=== PATIENT | male | born 1985 | race Caucasian/White ===

== ENCOUNTER 2020-06-02 09:01 | Day surgery (SDC) | payer MEDICAID, SELFPAY ==
[~2020-06-02] VITALS: Ht 175.3 cm; Wt 87.6 kg
[2020-06-02 09:51] LABS: BASO # 0.1 10^3/uL (0.0-0.2); BASO % 0.2 % (0.0-1.0); HEMATOCRIT 44.6 % (42.0-52.0); HEMOGLOBIN 15.4 g/dl (13.5-17.5); LYMPH % 4.8 % (24.0-44.0); MEAN CORPUSCULAR HEMOGLOBIN 30.3 pg (27.0-33.0); MEAN CORPUSCULAR HGB CONC 34.5 g/dl (32.0-36.5); MEAN CORPUSCULAR VOLUME 87.8 fl (80.0-96.0); MONO % 4.8 % (0.0-5.0); NEUTROPHILS # 19.6 10^3/uL (1.5-8.5); NEUTROPHILS % 89.6 % (36.0-66.0); PLATELET COUNT, AUTOMATED 183 10^3/uL (150-450); RED BLOOD COUNT 5.08 10^6/uL (4.30-6.10); WHITE BLOOD COUNT 21.9 10^3/uL (4.0-10.0)
[2020-06-02 10:01] LABS: INR 0.95; PARTIAL THROMBOPLASTIN TIME 28.6 SECONDS (24.2-38.5); PROTHROMBIN TIME 12.8 SECONDS (12.5-14.3)
[2020-06-02 10:18] LABS: ALBUMIN 4.2 GM/DL (3.2-5.2); ALT/SGPT 54 U/L (12-78); AMYLASE 38 U/L (25-115); BILIRUBIN,DIRECT 0.3 MG/DL (0.0-0.2); BILIRUBIN,TOTAL 1.2 MG/DL (0.2-1.0); BLOOD UREA NITROGEN 14 MG/DL (7-18); CALCIUM LEVEL 9.3 MG/DL (8.5-10.1); CARBON DIOXIDE LEVEL 26 MEQ/L (21-32); CHLORIDE LEVEL 102 MEQ/L (98-107); CREATININE FOR GFR 1.05 MG/DL (0.70-1.30); GLOMERULAR FILTRATION RATE > 60.0 (>60); GLUCOSE, FASTING 140 MG/DL (70-100); LIPASE 93 U/L (73-393); POTASSIUM SERUM 3.8 MEQ/L (3.5-5.1); SODIUM LEVEL 137 MEQ/L (136-145)
[2020-06-02] MEDS ORDERED: ISOVUE-370 76% 100ML VIAL As Ordered ONE (10:34)
[2020-06-02] MEDS ORDERED: ONDANSETRON 4MG/2ML VIAL IV ONE (11:00)
[2020-06-02] MEDS ORDERED: NS 1,000 ML IV SCH (11:00)
--- NOTE | 2020-06-02 11:05 | REPVR ---
PROCEDURE INFORMATION: Exam: CT Abdomen And Pelvis With Contrast Exam date and time: 06/02/2020 10:38 AM Age: 35 years old Clinical indication: Abdominal pain; Generalized; Additional info: Abd pain TECHNIQUE: Imaging protocol: Computed tomography of the abdomen and pelvis with intravenous contrast. Radiation optimization: All CT scans at this facility use at least one of these dose optimization techniques: automated exposure control; mA and/or kV adjustment per patient size (includes targeted exams where dose is matched to clinical indication); or iterative reconstruction. Contrast material: ISOVUE 370; Contrast volume: 100 ml; Contrast route: INTRAVENOUS (IV); COMPARISON: No relevant prior studies available. FINDINGS: Liver: Fatty liver is enlarged 184 mm. Gallbladder and bile ducts: Normal. No calcified stones. No ductal dilation. Pancreas: Normal. No ductal dilation. Spleen: There granulomata within an enlarged spleen measuring 130 mm. Adrenals: Normal. No mass. Kidneys and ureters: Normal. No hydronephrosis. Stomach and bowel: Scattered colonic diverticula are identified. Appendix: There is are calcifications within the appendix. There is mild inflammatory changes around an enlarged appendix measuring 10 mm. There is no evidence of perforation. Intraperitoneal space: Unremarkable. No free air. No significant fluid collection. Vasculature: Unremarkable. No abdominal aortic aneurysm. Lymph nodes: Unremarkable. No enlarged lymph nodes. Urinary bladder: Unremarkable as visualized. Reproductive: Unremarkable as visualized. Bones/joints: Unremarkable. No acute fracture. Soft tissues: Unremarkable. IMPRESSION: 1. Acute appendicitis with an appendiceal calcifications. No evidence of perforation. 2. Hepatosplenomegaly with fatty liver. Electronically signed by: Fercho Paez On 06/02/2020 11:05:31 AM
[2020-06-02] MEDS ORDERED: PIPERACILLIN/TAZOBACTAM SOD 4.5 GM in D5W MINI-BAG PLUS 50 ML IV ONE (11:15)
[2020-06-02] MEDS: MORPHINE 4 MG/ML 1ML VIAL/SYRINGE (J2270) IV PRN ×2 (11:21→12:14)
[2020-06-02] MEDS ORDERED: ALLE180T33 PO (11:58)
[2020-06-02] MEDS ORDERED: MORPHINE 4 MG/ML 1ML VIAL/SYRINGE (J2270) As Ordered ONE (13:23)
[2020-06-02] MEDS ORDERED: MORPHINE 4 MG/ML 1ML VIAL/SYRINGE (J2270) IV ONE (13:30)
[2020-06-02] MEDS: LR 1,000 ML IV SCH (14:47)
[2020-06-02] MEDS ORDERED: MORPHINE 2 MG/ML 1ML VIAL (J2270) As Ordered ONE ×4 (15:32→19:53)
[2020-06-02] MEDS: MORPHINE 2 MG/ML 1ML VIAL (J2270) IV PRN ×4 (15:33→20:15)
[2020-06-02] MEDS ORDERED: ZOSYN 3.375GM VIAL (J2543) As Ordered ONE (16:51)
[2020-06-02] MEDS ORDERED: ACETAMINOPHEN 325 MG TAB As Ordered ONE (17:13)
[2020-06-02] MEDS: PIPERACILLIN/TAZOBACTAM SOD 3.375 GM in D5W MINI-BAG PLUS 50 ML IV SCH (17:14)
[2020-06-02] MEDS ORDERED: ACETAMINOPHEN TAB 650MG DOSE (2X325MG) PO ONE (17:30)
[2020-06-02] MEDS ORDERED: MIDAZOLAM INJ 2MG/2ML VIAL (J2250 PER 1MG) As Ordered ONE (20:05)
[2020-06-02] MEDS ORDERED: dexameTHASONE 4 MG/ML 1ML VIAL (J1100 PER 1MG) As Ordered ONE (20:05)
[2020-06-02] MEDS ORDERED: LIDOCAINE 2% 100MG/5ML SDV (FOR ANES.) As Ordered ONE (20:05)
[2020-06-02] MEDS ORDERED: ROCURONIUM BROMIDE 50 MG/5 ML VIAL As Ordered ONE (20:05)
[2020-06-02] MEDS ORDERED: propofoL 200 MG/20 ML VIAL As Ordered ONE (20:05)
[2020-06-02] MEDS ORDERED: fentaNYL 100 MCG/2 ML INJECTION (J3010) As Ordered ONE ×2 (20:05→20:53)
[2020-06-02] MEDS ORDERED: ONDANSETRON 4MG/2ML VIAL As Ordered ONE (20:05)
[2020-06-02] MEDS ORDERED: BUPIVACAINE HCL 0.25% 30ML VIAL As Ordered ONE (20:06)
[2020-06-02] MEDS ORDERED: KETOROLAC 60MG 2ML VIAL As Ordered ONE (20:48)
[2020-06-02] MEDS ORDERED: SUGAMMADEX SODIUM 500 MG/5 ML VIAL (BRIDION) As Ordered ONE (20:48)
[2020-06-02] MEDS ORDERED: METOCLOPRAMIDE INJ 10MG/2ML VIAL (J2765 PER 1) As Ordered ONE (21:01)
[2020-06-02] MEDS ORDERED: ACETAMINOPHEN TAB 650MG DOSE (2X325MG) PO PRN (22:15)
[2020-06-02] MEDS ORDERED: PERCOCET 5MG/325MG TAB PO PRN (22:15)
[2020-06-02] MEDS ORDERED: fentaNYL 100 MCG/2 ML INJECTION (J3010) IV PRN (22:15)
[2020-06-02] MEDS ORDERED: METOCLOPRAMIDE INJ 10MG/2ML VIAL (J2765 PER 1) IV PRN (22:15)
[2020-06-02] MEDS ORDERED: LR 1,000 ML IV SCH (22:15)
[2020-06-02] MEDS ORDERED: NORCO, ANEXSIA 5/325MG TABLET (HYDROcodone/ACETAMINOPHEN) PO PRN (22:15)
[2020-06-02] MEDS ORDERED: ONDANSETRON 4MG/2ML VIAL IV PRN ×2 (22:15)
[2020-06-02] MEDS ORDERED: IBUPROFEN 600MG TAB PO PRN (22:15)
[2020-06-02] MEDS ORDERED: KETOROLAC 30 MG/ML 1ML VIAL IV PRN (22:15)
[2020-06-02 23:30] VITALS: BP 125/69
[2020-06-03] VITALS (7 sets, daily range): BP systolic 105–126; BP diastolic 65–80
[2020-06-03] MEDS: PIPERACILLIN/TAZOBACTAM SOD 3.375 GM in D5W MINI-BAG PLUS 50 ML IV SCH ×5 (00:34→23:25)
[2020-06-03] MEDS: LR 1,000 ML IV SCH ×2 (02:13→10:27)
--- NOTE | 2020-06-03 10:28 | RO ---
DATE OF OPERATION: 06/02/2020 PREOPERATIVE DIAGNOSIS: Acute appendicitis. POSTOPERATIVE DIAGNOSIS: Acute appendicitis with perforation. PROCEDURE: Laparoscopic appendectomy. SURGEON: Gary Syed M.D. HR ASSOCIATE: ANESTHESIA: General. INDICATIONS FOR PROCEDURE: Patient is a 35-year-old man who presented to the emergency department with a roughly one-day history of abdominal discomfort. This was initially fairly diffuse and associated with some nausea and vomiting. The pain became more predominant and was most pronounced across the lower abdomen and in the right lower quadrant. He presented to the emergency department for evaluation. He was found to have significant tenderness across the lower abdomen and his white count was elevated to approximately 22,000 with a left shift. A CT scan showed appendicoliths within an inflamed appendix and I was consulted. He is now for a laparoscopic appendectomy. He has had a fever reported since admission and he has fairly marked tenderness diffusely across the lower abdomen raising the likelihood that this represents a perforated appendicitis. DESCRIPTION OF OPERATIVE PROCEDURE: The patient was brought to the operating room and placed on the table in a supine position. He was placed under general endotracheal anesthesia. The patients abdomen was prepped and draped in a sterile fashion. 0.25% Marcaine was infiltrated at each of the trocar sites as needed. A short supraumbilical midline incision was made. A Veress needle was inserted and after a positive hanging drop test, the abdomen was insufflated with carbon dioxide gas. When the abdomen was fully inflated, the Veress needle was removed. The fascia was scored with a scalpel and an 11-mm trocar was inserted in the supraumbilical site without difficulty. The scope was inserted and initial examination showed some air and fluid-filled loops of small bowel. There was some increased redness of several loops of the small bowel in the right lower quadrant in particular. There were small quantities of lightly turbid, yellow-green fluid along the pericolic gutter on the right. The patient was tilted slightly to the left. Two 5-mm ports were placed in the left lower quadrant. Graspers were inserted. Just inferior to the cecum, there was some yellow-green exudate identified on several fibrofatty tags. This was adjacent to the terminal ileum but there were also several tags from the sigmoid colon in this area. As these were broken apart the markedly inflamed appendix was identified. The majority of the appendix was obviously dilated and quite pale in appearance with marked inflammation of the mesoappendix. There was some yellowish exudate. Toward the base of the appendix, there appeared to be a small pocket with exudate suggestive of a small periappendiceal abscess that had ruptured and spilled its contents into the abdomen. The appendix was freed from the retroperitoneum by blunt dissection. There was not a gross perforation of the appendix identified. The appendix was elevated. The turbid fluid in the pericolic gutter and in the right lower quadrant was irrigated and removed. The attachments of the appendix were divided using the hook cautery. As the appendix was dissected more proximally, the vascular bundle was identified. This was thoroughly cauterized and divided. The 1-2 cm of the base of the appendix appeared healthy and uninflamed. As this was exposed, the connection of the appendix to the cecum was clearly identified. The appendix was stapled at its juncture with the cecum and the appendix was placed in an Endopouch. A small amount of exudate was removed from the right lower quadrant using the suction diamond die driller. The patient was then tilted into a reverse Trendelenburg position and some fluid was washed along the pericolic gutter and the right upper and lower quadrants and allowed to drain toward the pelvis. This was all removed. The patient was then returned to a flat position and the fluid within the pelvis was evacuated. There did not appear to be any significant inflammatory changes outside a small area around the appendix. After ensuring excellent hemostasis, the patient was placed in a flat position. The abdomen was deflated and the trocars were removed. The appendix was recovered through the supraumbilical site. The fascia was closed with two simple sutures of 2-0 Vicryl. The skin incisions were all closed with buried 4-0 Vicryl sutures and Steri-Strips. Light dressings were applied. The patient tolerated the procedure well without apparent complication. He was awakened in the operating room, extubated, and moved to the recovery room in stable condition. FLORINA
[2020-06-03 10:42] LABS: BASO % 0.1 % (0.0-1.0); HEMATOCRIT 38.7 % (42.0-52.0); LYMPH # 1.3 10^3/uL (1.5-5.0); LYMPH % 6.6 % (24.0-44.0); MEAN CORPUSCULAR HEMOGLOBIN 31.3 pg (27.0-33.0); MEAN CORPUSCULAR HGB CONC 34.4 g/dl (32.0-36.5); MEAN CORPUSCULAR VOLUME 91.1 fl (80.0-96.0); MONO # 1.1 10^3/uL (0.0-0.8); MONO % 5.4 % (0.0-5.0); NEUTROPHILS # 17.7 10^3/uL (1.5-8.5); NEUTROPHILS % 87.4 % (36.0-66.0); PLATELET COUNT, AUTOMATED 159 10^3/uL (150-450); RED BLOOD COUNT 4.25 10^6/uL (4.30-6.10); WHITE BLOOD COUNT 20.2 10^3/uL (4.0-10.0)
[2020-06-03 10:52] LABS: HEMOGLOBIN 13.3 g/dl (13.5-17.5)
[2020-06-04 02:00] VITALS: BP 110/64
[2020-06-04] MEDS: PIPERACILLIN/TAZOBACTAM SOD 3.375 GM in D5W MINI-BAG PLUS 50 ML IV SCH (04:17)
[2020-06-04 06:00] VITALS: BP 102/69
[2020-06-04 08:07] LABS: BASO # 0.1 10^3/uL (0.0-0.2); BASO % 0.5 % (0.0-1.0); EOS # 0.2 10^3/uL (0.0-0.5); EOS % 1.6 % (0.0-3.0); HEMATOCRIT 36.6 % (42.0-52.0); HEMOGLOBIN 12.1 g/dl (13.5-17.5); LYMPH % 27.4 % (24.0-44.0); MEAN CORPUSCULAR HEMOGLOBIN 30.4 pg (27.0-33.0); MEAN CORPUSCULAR HGB CONC 33.1 g/dl (32.0-36.5); MONO # 0.8 10^3/uL (0.0-0.8); MONO % 7.7 % (0.0-5.0); NEUTROPHILS # 6.8 10^3/uL (1.5-8.5); NEUTROPHILS % 62.3 % (36.0-66.0); PLATELET COUNT, AUTOMATED 138 10^3/uL (150-450); RED BLOOD COUNT 3.98 10^6/uL (4.30-6.10); WHITE BLOOD COUNT 10.9 10^3/uL (4.0-10.0)
[2020-06-04] MEDS ORDERED: AUGM875T28 PO (09:33)
[2020-06-04] MEDS ORDERED: INFLUENZA QUADRIVALENT PF VACCINE 0.5ML SYRINGE IM ONE (12:00)
--- NOTE | 2020-06-06 10:12 | IPN ---
DATE: 06/03/2020 HISTORY: Patient was admitted yesterday and underwent a laparoscopic appendectomy last evening. He was found to have some inflammatory fluid in the paracolic gutter and right lower quadrant. There were some changes around the base of the appendix that suggested at least localized perforation. He was continued on Piperacillin Tazobactam postop. VITAL SIGNS: T-max postop 99.9 at midnight, pulse in the 80s to 90s with a good blood pressure and a normal room air oxygen saturation. INTAKE AND OUTPUT: Show that yesterday he had 2,400 in with 160 recorded out. Today he has had a brisk urine output with 2 liters of urine output and a good intake. PHYSICAL EXAMINATION: GENERAL: Patient is alert and denies any significant pain at this time. He has been out of bed to ambulate. SKIN: Warm and dry. HEART AND LUNG: Exams are unremarkable, though his pulse remains in the mid 80s to low 90s. ABDOMEN: Some bowel sound present. His dressings are clean and dry. LABORATORY STUDIES: This morning shows white count remaining at 20,000 with a differential showing 87% neutrophils, 7% lymphocytes and 5% monocytes. This compares to a white count yesterday morning of 22,000. IMPRESSION: Patient is now postop day #1 and approximately 14 to 16 hours postop from laparoscopic appendectomy for localized perforation of acute appendicitis. His white count was quite elevated preop and he spiked a fever before surgery. He was kept on antibiotics and this morning his white count is still 20,000. His fever has resolved, which is reassuring and his bowel function has returned as well. PLAN: He will be converted to an admission at this point and we will continue his Zosyn further. A repeat CBC with diff will be obtained tomorrow morning. If his white count drops adequately, then my covering partner could discharge him home on some oral antibiotics. If the white count remains elevated or anything else points toward possible continued infection, then he can remain in the hospital continuing antibiotics. FLORINA
== END 2020-06-04 11:35 | disposition home or self-care (01) ==
LOC: M ED 09:01 → M SDC 14:27 → M MS5PR 23:32 → M SDC 23:32
PROVIDERS: ATTEND Surgery
DX: K35.32 Acute appendicitis with perforation, localized peritonitis, and gangrene, without abscess (principal)
CPT/HCPCS: 36415; 44970; 74177; 80048; 80076; 81001; 82150; 83690; 85025; 85610; 85730; 88304; 90471; 90686; 96361; 96365; 96366; 96375; 96376; 99284; J1100; J1885; J2250; J2270; J2405; J2543; J2765; J3010; Q9967; U0002

== ENCOUNTER → 2025-04-21 | Outpatient (REF) | payer OTHER, SELFPAY ==
[~2025-04-21] MED LIST: ALLE180T33 PO; AUGM875T28 PO
== END ==
LOC: M LAB REF 12:25
PROVIDERS: ATTEND Nurse Practitioner Family
DX: R53.83 Other fatigue (principal)